=== PATIENT | male | born 1975 | race Caucasian/White ===

== ENCOUNTER 2016-11-20 16:02 | Emergency (ER) | payer BC ==
[~2016-11-20] VITALS: Ht 167.6 cm; Wt 73.0 kg
[2016-11-20 17:47] VITALS: BP 145/87
== END 2016-11-20 17:49 | disposition home or self-care (01) ==
LOC: EME 16:02
DX: G43.909 Migraine, unspecified, not intractable, without status migrainosus (principal); F17.200 Nicotine dependence, unspecified, uncomplicated
CPT/HCPCS: 99281; 99284; J1885